=== PATIENT | female | born 1955 | race African-American/Black ===

== ENCOUNTER 2017-05-18 21:22 | Emergency (ER) | payer BC, OTHER ==
[~2017-05-18] VITALS: Ht 167.6 cm; Wt 108.0 kg
[~2017-05-18 21:22] MED LIST: COZAR; INSLANTI; NORVASC; NOVOLOG; NTG; SIMV5TAB50
[2017-05-18] MEDS ORDERED: cloNIDine HCL 0.1 MG TAB PO ONE (21:30)
[2017-05-18] MEDS ORDERED: ONDANSETRON HCL 4 MG/2 ML VIAL IV ONE (22:30)
[2017-05-18] MEDS ORDERED: HYDROmorphone HCL 2 MG/ML VL IV ONE (22:30)
[2017-05-19 01:46] VITALS: BP 168/86
== END 2017-05-19 01:47 | disposition home or self-care (01) ==
LOC: EDBD 21:22 → ER 21:22
DX: S93.491A Sprain of other ligament of right ankle, initial encounter (principal); Z79.899 Other long term (current) drug therapy; V43.52XA Car driver injured in collision with other type car in traffic accident, initial encounter; Y93.I9 Activity, other involving external motion; Y99.8 Other external cause status; Y92.89 Other specified places as the place of occurrence of the external cause
CPT/HCPCS: 29515; 73610; 73630; 73700; 96374; 96375; 99284; J1170; J2405

== ENCOUNTER 2021-03-16 21:50 | Emergency (ER) | payer MEDICARE, OTHER ==
[~2021-03-16] VITALS: Ht 167.6 cm; Wt 108.0 kg
[2021-03-16 23:46] LABS: Basophils # (auto) 0.1 10 ^3/uL (0-0.2); Basophils % (auto) 0.7 % (0.0-2.0); Eosinophils # (auto) 0.3 10 ^3/uL (0-0.8); Eosinophils % (auto) 4.2 % (0.0-7.0); Hematocrit 40.6 % (36.0-46.0); Lymphocytes # (auto) 3.3 10 ^3/uL (0.4-5.4); Lymphocytes % (auto) 43.1 % (10.0-50.0); Mean Corpuscular Hemoglobin 27.4 pg (28.0-32.0); Mean Corpuscular Hgb Conc. 32.1 g/dL (32.0-36.0); Mean Corpuscular Volume 85.3 fL (80.0-100.0); Monocytes # (auto) 0.6 10 ^3/uL (0-1.3); Neutrophils # (auto) 3.4 10 ^3/uL (1.6-8.6); Red Blood Cells 4.76 10^6/uL (4.0-5.20); Red Cell Distribution Width 14.9 % (11.8-14.3); White Blood Cell 7.7 10^3/uL (4.4-10.8)
[2021-03-17] MEDS ORDERED: HYDROcodone-ACET 7.5/325MG TAB PO ONE
[2021-03-17 00:02] LABS: Potassium 3.9 mmol/L (3.5-5.1)
[2021-03-17 00:07] LABS: Albumin 2.8 g/dL (3.4-5.0); BUN/Creatinine Ratio 14.9; Calcium 8.7 mg/dL (8.5-10.1)
[2021-03-17 00:12] LABS: Bilirubin, Total 0.2 mg/dL (0.2-1.0); Total Protein 6.9 g/dL (6.4-8.2)
[2021-03-17 01:40] VITALS: BP 150/84
== END 2021-03-17 01:46 | disposition home or self-care (01) ==
LOC: ER 21:52
DX: G50.0 Trigeminal neuralgia (principal); I11.0 Hypertensive heart disease with heart failure; I50.9 Heart failure, unspecified; E11.9 Type 2 diabetes mellitus without complications; Z88.6 Allergy status to analgesic agent
CPT/HCPCS: 36415; 70450; 80053; 84484; 85025; 93005

== ENCOUNTER 2021-03-21 16:28 | Emergency (ER) | payer MEDICARE, OTHER ==
[~2021-03-21] VITALS: Ht 167.6 cm; Wt 108.0 kg
[2021-03-21 16:34] VITALS: BP 187/91
== END 2021-03-22 04:47 | disposition left against medical advice (07) ==
LOC: ER 16:28
DX: R51.9 Headache, unspecified (principal); Z53.21 Procedure and treatment not carried out due to patient leaving prior to being seen by health care provider
CPT/HCPCS: J7042

== ENCOUNTER 2021-12-31 16:04 | Emergency (ER) | payer MEDICARE, OTHER ==
[~2021-12-31] VITALS: Ht 167.6 cm; Wt 109.0 kg
[2021-12-31] MEDS ORDERED: MORPHINE SULFATE 4 MG/ML SYR/VIAL IM ONE (19:15)
[2021-12-31] MEDS ORDERED: methylPREDNISolone SOD SUCC 125 MG/2 ML VL IM ONE (19:15)
[2021-12-31 19:17] VITALS: BP 140/60
[2021-12-31] MEDS ORDERED: LIDO5DIS21 TOP (19:31)
== END 2021-12-31 20:05 | disposition home or self-care (01) ==
LOC: ER 16:04
DX: S80.02XA Contusion of left knee, initial encounter (principal); I11.0 Hypertensive heart disease with heart failure; I50.9 Heart failure, unspecified; E11.9 Type 2 diabetes mellitus without complications; Z88.6 Allergy status to analgesic agent; W01.0XXA Fall on same level from slipping, tripping and stumbling without subsequent striking against object, initial encounter; Y93.89 Activity, other specified; Y92.89 Other specified places as the place of occurrence of the external cause; Y99.8 Other external cause status
CPT/HCPCS: 73562; 96372; 99284; J2270; J2930